=== PATIENT | male | born 1965 | race Caucasian/White ===

== ENCOUNTER 2019-03-20 10:45 | Emergency (ER) | payer OTHER ==
[2019-03-20 11:27] LABS: PLATELET COUNT 173 10^3/uL (150-400)
[2019-03-20 12:20] VITALS: BP 103/69
[2019-03-20] MEDS ORDERED: IPRATROPIUM/ALBUTEROL 3 ML DEYVIAL IH ONE (12:40)
--- NOTE | 2019-03-20 12:46 | EDPHY ---
H & P Stated Complaint: SOB SINCE LAST NIGHT/DENIES CP OR INJURY Time Seen by Provider: 03/20/19 10:58 HPI/ROS: Chief complaint: Trouble breathing History of present illness: This is a 53-year-old male who presents to the emergency department for evaluation of trouble breathing. Patient reports the onset of symptoms last night. They have been persistent. He denies specific precipitating factors. He denies any alleviating factors. He denies other associated signs or symptoms including no fevers or cold symptoms, no cough, no chest congestion, no chest pain, no pain or swelling in the legs. He states he has never had similar symptoms in the past. Review of systems: A 10 point review of systems was obtained and other than described above was negative. - Personal History Current Tetanus Diphtheria and Acellular Pertussis (TDAP): Unsure - Medical/Surgical History Hx Asthma: No Hx Chronic Respiratory Disease: No Hx Diabetes: No Hx Cardiac Disease: No Hx Renal Disease: No Hx Cirrhosis: No Hx Alcoholism: No Hx HIV/AIDS: No Hx Splenectomy or Spleen Trauma: No Other PMH: left knee surgery, hernia repair HEMANGIOMA R TRAPEZIUS - Social History Smoking Status: Current some day smoker - Physical Exam Exam: General Appearance: Alert, no distress. Eyes: Pupils equal and round no pallor or injection. ENT, Mouth: Mucous membranes moist. Tympanic membranes, external auditory canals, external ears and surrounding soft tissue including over the mastoids are unremarkable. Nasopharynx is not injected. There is no rhinorrhea. Oropharynx is not injected. There is no edema. There is no exudate. There is no asymmetry. The uvula is midline. No elevation of the tongue. There is no hoarseness, no drooling, no trismus, no stridor. Respiratory: Patient is speaking in full sentences. No accessory muscle use. Mildly diminished lung sounds in the upper sparks. Lower sparks are clear. No wheezing, rhonchi or rales are noted. Cardiovascular: Regular rate and rhythm. Gastrointestinal: Abdomen is soft and non tender, no masses, bowel sounds normal. Neurological: Alert and oriented x4. Cranial nerves 2-12 grossly intact. Skin: Warm and dry, no rashes. Musculoskeletal: Neck is supple non tender. Extremities are symmetrical, full range of motion. Psychiatric: Patient is oriented X 3, there is no agitation. Constitutional: Initial Vital Signs Temperature (C) 36.5 C 03/20/19 10:50 Heart Rate 64 03/20/19 10:50 Respiratory Rate 18 03/20/19 10:50 Blood Pressure 116/75 03/20/19 10:50 O2 Sat (%) 95 03/20/19 10:50 O2 Delivery Mode Room Air Allergies/Adverse Reactions: amoxicillin [From Augmentin] Allergy (Verified 03/20/19 10:49) clavulanic acid [From Augmentin] Allergy (Verified 03/20/19 10:49) Home Medications: Medication Instructions Recorded Albuterol Sulfate [Proair Hfa] 8.5 gm IH Q4-6PRN PRN #1 [email or web address] 03/20/19 VYVANSE 03/20/19 Medical Decision Making - Diagnostics Imaging Results: Imaging Impressions Chest X-Ray 03/20/19 11:50 Impression: Query mild reactive airways disease. There is no confluent infiltrate. Imaging: I viewed and interpreted images myself ED Course/Re-evaluation: Patient seen under the supervision of my secondary supervising physician Dr. Belkis Rushing. Patient presents to the emergency department for evaluation of dyspnea. He is nontoxic. Vital signs are stable. He had mildly diminished lung sounds. Workup largely unremarkable including normal EKG, troponin and negative D-dimer. X-ray with questionable reactive airway disease. Given this x-ray finding and decreased lung sounds I offered patient a nebulizer, he declined. I did review his results with him. He seemed somewhat upset and frustrated. When I inquired why he stated he was fine. He just wanted to go. I made myself available to answer all questions. We will try a trial of an albuterol inhaler at home. He is asked to follow up with his primary care doctor this week for recheck. He is given strict return precautions. He has voiced understanding and agreement plan. Differential Diagnosis: Included but not limited to pulmonary infections, reactive airway disease, pneumothorax, PE, cardiac dysrhythmia, ACS, GERD, anxiety - Data Points Laboratory Results: Laboratory Results 03/20/19 11:05 03/20/19 11:05 03/20/19 03/20/19 03/20/19 11:24 11:05 11:05 WBC RBC Hgb Hct MCV MCH MCHC RDW Plt Count MPV Neut % (Auto) Lymph % (Auto) Irion % (Auto) Eos % (Auto) Baso % (Auto) Nucleat RBC Rel Count Absolute Neuts (auto) Absolute Lymphs (auto) Absolute Monos (auto) Absolute Eos (auto) Absolute Basos (auto) Absolute Nucleated RBC Immature Gran % Immature Gran # D-Dimer < 0.27 ug/mLFEU ug/mLFEU (0.00-0.50) Sodium 137 mEq/L mEq/L (135-145) Potassium 4.0 mEq/L mEq/L (3.5-5.2) Chloride 109 mEq/L mEq/L (97-110) Carbon Dioxide 19 mEq/l L mEq/l (22-31) Anion Gap 9 mEq/L mEq/L (6-14) BUN 14 mg/dL mg/dL (7-23) Creatinine 0.8 mg/dL mg/dL (0.7-1.3) Estimated GFR > 60 Glucose 93 mg/dL mg/dL (70-100) Calcium 9.9 mg/dL mg/dL (8.5-10.4) POC Troponin I 0.00 ng/mL ng/mL (0.00-0.08) 03/20/19 11:05 WBC 6.25 10^3/uL 10^3/uL (3.80-9.50) RBC 4.87 10^6/uL 10^6/uL (4.40-6.38) Hgb 15.9 g/dL g/dL (13.7-17.5) Hct 46.3 % % (40.0-51.0) MCV 95.1 fL fL (81.5-99.8) MCH 32.6 pg pg (27.9-34.1) MCHC 34.3 g/dL g/dL (32.4-36.7) RDW 12.5 % % (11.5-15.2) Plt Count 173 10^3/uL 10^3/uL (150-400) MPV 9.9 fL fL (8.7-11.7) Neut % (Auto) 65.0 % % (39.3-74.2) Lymph % (Auto) 23.2 % % (15.0-45.0) Irion % (Auto) 8.3 % % (4.5-13.0) Eos % (Auto) 2.9 % % (0.6-7.6) Baso % (Auto) 0.3 % % (0.3-1.7) Nucleat RBC Rel Count 0.0 % % (0.0-0.2) Absolute Neuts (auto) 4.06 10^3/uL 10^3/uL (1.70-6.50) Absolute Lymphs (auto) 1.45 10^3/uL 10^3/uL (1.00-3.00) Absolute Monos (auto) 0.52 10^3/uL 10^3/uL (0.30-0.80) Absolute Eos (auto) 0.18 10^3/uL 10^3/uL (0.03-0.40) Absolute Basos (auto) 0.02 10^3/uL 10^3/uL (0.02-0.10) Absolute Nucleated RBC 0.00 10^3/uL 10^3/uL (0-0.01) Immature Gran % 0.3 % % (0.0-1.1) Immature Gran # 0.02 10^3/uL 10^3/uL (0.00-0.10) D-Dimer Sodium Potassium Chloride Carbon Dioxide Anion Gap BUN Creatinine Estimated GFR Glucose Calcium POC Troponin I Medications Given: Discontinued Medications Albuterol/Ipratropium (Duoneb) 3 ml IH EDNOW ONE Stop: 03/20/19 12:41 Last Admin: 03/20/19 12:53 Dose: Not Given Point of Care Test Results: Chemistry 03/20/19 11:24 POC Troponin I 0.00 ng/mL ng/mL (0.00-0.08) Departure - Departure Disposition: Home, Routine, Self-Care Clinical Impression: Dyspnea Qualifiers: Dyspnea type: unspecified Qualified Code(s): R06.00 - Dyspnea, unspecified Condition: Good Instructions: Dyspnea (ED) Additional Instructions: Follow-up with your primary care doctor for continued evaluation and care If symptoms worsen or new symptoms develop return to the emergency room for recheck Referrals: MD JAYLEEN [Other] - As per Instructions Prescriptions: Albuterol Sulfate [Proair Hfa] 8.5 gm IH Q4-6PRN PRN #1 [email or web address] PRN Reason: Short Of Breath/Dyspnea
--- NOTE | 2019-03-20 14:48 | CPEKG ---
Test Reason : OPEN Blood Pressure : / mmHG Vent. Rate : 060 BPM Atrial Rate : 060 BPM P-R Int : 172 ms QRS Dur : 097 ms QT Int : 427 ms P-R-T Axes : 004 016 038 degrees QTc Int : 427 ms Sinus rhythm Abnormal R-wave progression, early transition Confirmed by Belkis Rushing ([id number] on 03/20/2019 2:47:31 PM Referred By: Belkis Rushing Confirmed By:Belkis Rushing
== END 2019-03-20 13:05 | disposition home or self-care (01) ==
DX: R06.00 Dyspnea, unspecified (principal); F17.200 Nicotine dependence, unspecified, uncomplicated
CPT/HCPCS: 84484-ER